=== PATIENT | female | born 1985 | race Caucasian/White ===

== ENCOUNTER 2019-05-28 19:06 | Emergency (ER) | payer SELFPAY ==
[~2019-05-28] VITALS: Ht 162.6 cm; Wt 121.4 kg
[~2019-05-28 19:06] MED LIST: CLOT30CR24 TOP; NITR-58 PO
[2019-05-28 19:12] VITALS: Ht 162.6 cm; Wt 121.4 kg
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
[2019-05-28 22:55] VITALS: BP 142/92; PULSE 67; RESP 17
== END 2019-05-28 22:55 | disposition home or self-care (01) ==
LOC: FTE 19:06
DX: O20.9 Hemorrhage in early pregnancy, unspecified (principal); O10.011 Pre-existing essential hypertension complicating pregnancy, first trimester; O99.281 Endocrine, nutritional and metabolic diseases complicating pregnancy, first trimester; O23.41 Unspecified infection of urinary tract in pregnancy, first trimester; R10.2 Pelvic and perineal pain; E03.9 Hypothyroidism, unspecified; Z3A.09 9 weeks gestation of pregnancy
CPT/HCPCS: 36415; 76801; 80053; 81001; 84702; 85025

== ENCOUNTER → 2019-06-06 | Emergency (ER) | payer MEDICAID ==
[~2019-06-06] VITALS: Ht 154.9 cm; Wt 126.0 kg
[2019-06-06 10:05] VITALS: BP 111/63; PULSE 79; RESP 18; Ht 154.9 cm; Wt 126.0 kg
--- NOTE | 2019-06-06 15:38 | ERD ---
ER Documentation Chief Complaint Chief Complaint 12 WEEKS WITH SPOTTING HPI 33 yr old female complaining of general spotting. Patient is having blood pass this morning. Has contractions noted to the pelvic region. G6, . Patient LNMP March 08. Has generalized lower pelvic abdominal pain. Medical history is hypertension hypercholesterolemia and hypothyroidism. NKDA. Surgical history is cholecystectomy and colonoscopy with biopsy. Social history smokes marijuana. ROS All systems reviewed and are negative except as per history of present illness. Medications Home Meds Active Scripts Clotrimazole* (Clotrimazole* AF) 1% - 30 Gm Cream.gm., 1 APPLIC TOP BID for yeast infection for 7 Days, #1 TUB Prov:FLORIAN HAMM DO 05/28/19 Nitrofurantoin Monohyd Macrocr* (Macrobid*) 100 Mg Capsr, 100 MG PO BID for uti for 4 Days, #8 CAP Prov:FLORIAN HAMM DO 05/28/19 Allergies Allergies: Coded Allergies: No Known Allergy (Unverified , 05/28/19) PMhx/Soc History of Surgery: Yes (LAWRENCE, HAMMER TOE ) Hx Cardiac Disorders: Yes (HTN, HLD) Hx Psychiatric Problems: No Hx Miscellaneous Medical Probl: Yes (HYPOTHYROIDISM, MULTIPLE COLONOSCOPIES) Hx Alcohol Use: No Hx Substance Use: Yes (Marijuana) Hx Tobacco Use: No Smoking Status: Former smoker FmHx Family History: No diabetes, No coronary disease, No other Physical Exam Vitals Vital Signs Date Temp Pulse Resp B/P (MAP) Pulse Ox O2 O2 Flow FiO2 Time Delivery Rate 06/06/19 98.1 79 18 111/63 99 10:05 (79) Physical Exam GENERAL: The patient is well-appearing, well-nourished, in no acute distress CHEST: Clear to auscultation bilaterally. There are no rales, wheezes or rhonchi. HEART: Regular rate and rhythm. No murmurs, clicks, rubs or gallops. ABDOMEN:Soft, nontender and nondistended. Good bowel sounds. No rebound or guarding. No gross peritonitis. BACK: No pain, No CVAT Result Diagram: 06/06/19 1021 Results 24 hrs Laboratory Tests Test 06/06/19 10:21 White Blood Count 9.0 10^3/ul Red Blood Count 4.23 10^6/ul Hemoglobin 13.1 g/dl Hematocrit 40.4 % Mean Corpuscular Volume 95.5 fl Mean Corpuscular Hemoglobin 31.0 pg Mean Corpuscular Hemoglobin Concent 32.4 g/dl Red Cell Distribution Width 13.7 % Platelet Count 273 10^3/UL Mean Platelet Volume 9.7 fl Immature Granulocytes % 0.300 % Neutrophils % 76.0 % Lymphocytes % 18.9 % Monocytes % 3.8 % Eosinophils % 0.6 % Basophils % 0.4 % Nucleated Red Blood Cells % 0.0 /100WBC Immature Granulocytes # 0.030 10^3/ul Neutrophils # 6.8 10^3/ul Lymphocytes # 1.7 10^3/ul Monocytes # 0.3 10^3/ul Eosinophils # 0.1 10^3/ul Basophils # 0.0 10^3/ul Nucleated Red Blood Cells # 0.0 10^3/ul Urine Color [place] Urine Clarity SLIGHTLY CLOUDY Urine pH 6.0 Urine Specific [place] 1.020 Urine Ketones TRACE mg/dL Urine Nitrite NEGATIVE mg/dL Urine Bilirubin NEGATIVE mg/dL Urine Urobilinogen NEGATIVE mg/dL Urine Leukocyte Esterase 1+ Karen/ul Urine Microscopic RBC 3 /HPF Urine Microscopic WBC 2 /HPF Urine Squamous Epithelial Cells FEW /HPF Urine Bacteria FEW /HPF Urine Mucus FEW /HPF Urine Hemoglobin NEGATIVE mg/dL Urine Glucose NEGATIVE mg/dL Urine Total Protein NEGATIVE mg/dl Beta HCG, Quantitative 55136.0 mIU/ml Procedures/MDM DIAGNOSTIC IMAGING REPORT Patient: MARY PARRISH : 1985 Age: 33 Sex: F MR #: [id number] DOS: 06/06/19 1013 Ordering MD: LESLY GUSTAFSON PA-C Location: E Room/Bed: PROCEDURE: US OB. CLINICAL INDICATION: Vaginal bleeding TECHNIQUE: Transabdominal and transvaginal views of the pelvis are available for review. COMPARISON: 05/28/2019 FINDINGS: There is a single intrauterine gestation with the crown-rump length measuring 5.4 cm, corresponding to a gestational age of 12 weeks and 0 days. The heart rate is noted at 163 bpm. The ovaries are not visualized. There is no free fluid. The cervix is dilated with echogenic material within it, with a thickness of 1.4 cm. RPTAT: AA IMPRESSION: Single live intrauterine with an estimated gestational age of 12 weeks and 0 days, based on ultrasound measurements. SARITA based on ultrasound measurements is 12/19/19. Dilated cervix with echogenic material within it, suspicious for hemorrhagic material. MDM: 33 yr old female complaining of vaginal discharge and bleeding. Patient's shows signs of miscarriage at this time given there is dilation to the cervix. Patient is hemodynamically stable and does not require transfusion. Patient is Rh+ does not require RhoGam. Hemoglobin is stable. No signs of urinary tract infection. Patient is recommended to follow-up with OB first thing in 2 days and to return if symptoms change or worsen. All questions answered at discharge Departure Diagnosis: Primary Impression: Threatened miscarriage Condition: Stable Patient Instructions: Possible Miscarriage (Threatened ) Referrals: [facility] YOU HAVE RECEIVED A MEDICAL SCREENING EXAM AND THE RESULTS INDICATE THAT YOU DO NOT HAVE A CONDITION THAT REQUIRES URGENT TREATMENT IN THE EMERGENCY DEPARTMENT. FURTHER EVALUATION AND TREATMENT OF YOUR CONDITION CAN WAIT UNTIL YOU ARE SEEN IN YOUR DOCTORS OFFICE WITHIN THE NEXT 1-2 DAYS. IT IS YOUR RESPONSIBILITY TO MAKE AN APPOINTMENT FOR FOLOW-UP CARE. IF YOU HAVE A PRIMARY DOCTOR --you should call your primary doctor and schedule an appointment IF YOU DO NOT HAVE A PRIMARY DOCTOR YOU CAN CALL OUR PHYSICIAN REFERRAL HOTLINE AT IF YOU CAN NOT AFFORD TO SEE A PHYSICIAN YOU CAN CHOSE FROM THE FOLLOWING [facility] [address] [facility]. [facility] [address] [facility] [address] [address] [facility]. [facility] [address] [facility]. [facility]. [address] Additional Instructions: FOLLOW UP WITH YOUR PRIMARY CARE PHYSICIAN TOMORROW.Return to this facility if you are not improving as expected. ED GUSTAFSON PA-C Jun 06, 2019 15:38
== END | disposition home or self-care (01) ==
LOC: FTE 10:04
DX: O20.0 Threatened abortion (principal); O10.011 Pre-existing essential hypertension complicating pregnancy, first trimester; O99.281 Endocrine, nutritional and metabolic diseases complicating pregnancy, first trimester; E03.9 Hypothyroidism, unspecified; Z3A.12 12 weeks gestation of pregnancy
CPT/HCPCS: 36415; 76801; 76817; 81001; 84702; 85025; 86900; 86901; Z7502

== ENCOUNTER 2019-07-08 02:24 | Inpatient (IN) | payer MEDICAID, OTHER ==
[~2019-07-08] VITALS: Ht 157.5 cm; Wt 128.1 kg
[~2019-07-08 02:24] MED LIST changes: +PNV11TAB PO
[2019-07-08] MEDS ORDERED: SOD CHLORIDE 0.9% 1,000 ML IV STA (02:43)
[2019-07-08 02:45] VITALS: Ht 157.5 cm; Wt 128.1 kg
[2019-07-08] MEDS ORDERED: OXYTOCIN 30 UNITS/LR 500 ML IVPB ONE (03:00)
[2019-07-08] MEDS ORDERED: ACETAMINOPHEN 325 MG TAB PO PRN ×2 (05:00→07:00)
[2019-07-08] MEDS ORDERED: ONDANSETRON 4 MG INJ IV PRN (05:00)
[2019-07-08] MEDS ORDERED: morphine 4 MG/ML VIAL IV STA (05:24)
[2019-07-08 06:38] VITALS: BP 124/56; PULSE 78; RESP 19
[2019-07-08] MEDS: HYDROmorphONE 1 MG/ML SYG IV PRN ×2 (07:39→14:15)
[2019-07-08 08:00] VITALS: BP 121/74; PULSE 83; RESP 18
[2019-07-08] MEDS ORDERED: OXYTOCIN IV SCH (11:15)
[2019-07-08] MEDS ORDERED: [UNRECOGNIZED DRUG - OTHER] IV SCH (11:15)
[2019-07-08] MEDS ORDERED: DEXTROSE 5% IV SCH (11:15)
[2019-07-08] MEDS ORDERED: MISOPROSTOL 200 MCG TAB PO ONE (11:30)
== END 2019-07-08 17:45 | disposition home or self-care (01) | DRG 779 ==
LOC: E/R 02:24 → PP2 04:38 → L-D 09:30
PROVIDERS: ADMIT Obstetrics & Gynecology; ATTEND Obstetrics & Gynecology
DX: O03.9 Complete or unspecified spontaneous abortion without complication (principal)
CPT/HCPCS: 36415; 76801; 80053; 84702; 85025; 85610; 85730; 86850; 86900; 86901; 88300; 88304; 88307; 96365; 96366; J1170; J2270; J2590; J7030; J7121